=== PATIENT | female | born 1945 | race Caucasian/White ===

== ENCOUNTER 2018-10-23 19:31 | Inpatient (IN) | payer BC, MEDICAID ==
[2018-10-23 21:41] LABS: ADD MAN DIFF? NO
[2018-10-23 21:47] LABS: HEMATOCRIT 33.1 % (37.0-47.0); HEMOGLOBIN 10.2 g/dl (12.0-16.0); MEAN CORPUSCULAR HEMOGLOBIN 28.4 pg (29.0-33.0); MEAN CORPUSCULAR HGB CONC 30.8 g/dl (32.0-37.0); MEAN CORPUSCULAR VOLUME 92.2 fl (82.0-101.0); PLATELET COUNT 304 10^3/UL (140-415); RED BLOOD COUNT 3.59 10^6/ul (4.20-5.40); RED CELL DISTRIBUTION WIDTH 18.4 % (11.5-14.5)
[2018-10-23 21:47] LABS: WHITE BLOOD COUNT 6.2 10^3/ul (4.8-10.8)
[2018-10-23 21:48] LABS: BASOPHILS % 0.5 % (0.0-2.0); EOSINOPHILS # 0.1 10^3/ul (0.0-0.5); EOSINOPHILS % 1.3 % (0.0-7.0); LYMPHOCYTES # 1.4 10^3/ul (0.8-2.9); LYMPHOCYTES % 21.8 % (15.0-51.0); MEAN PLATELET VOLUME 10.3 fl (7.4-10.4); MONOCYTE # 0.5 10^3/ul (0.3-0.9); MONOCYTES % 8.1 % (0.0-11.0); NEUTROPHIL # 4.1 10^3/ul (1.6-7.5); NEUTROPHILS % 66.8 % (39.0-77.0)
[2018-10-23 22:05] LABS: ALANINE AMINOTRANSFERASE 40 IU/L (13-69); ALBUMIN 3.9 g/dl (3.3-4.9); ALBUMIN/GLOBULIN RATIO 1.21; ALKALINE PHOSPHATASE 44 IU/L (42-121); ANION GAP 13 (5-13); ASPARTATE AMINO TRANSFERASE 32 IU/L (15-46); BILIRUBIN,INDIRECT 0.2 mg/dl (0-1.1); BILIRUBIN,TOTAL 0.2 mg/dl (0.2-1.3); BLOOD UREA NITROGEN 14 mg/dl (7-20); CALCIUM 9.3 mg/dl (8.4-10.2); CARBON DIOXIDE 24 mmol/L (21-31); CHLORIDE 107 mmol/L (97-110); CREATININE 0.77 mg/dl (0.44-1.00); GLUCOSE 183 mg/dl (70-220); POTASSIUM 4.8 mmol/L (3.5-5.1); SODIUM 144 mmol/L (135-144); TOTAL PROTEIN 7.1 g/dl (6.1-8.1)
[2018-10-23 22:07] LABS: INR 1.08; PROTIME 14.1 Sec (11.9-14.9); PT RATIO 1.1
[2018-10-23 22:16] LABS: B-TYPE NATRIURETIC PEPTIDE 7300 PG/ML (0-125)
[2018-10-23 22:37] LABS: TROPONIN-I 0.138 ng/ml (0.000-0.120)
[2018-10-23] MEDS: FUROSEMIDE 40 MG INJ IV (22:46)
[2018-10-23] MEDS: NITROGLYCERIN 2% 1 GM OINT PKT TD (22:46)
[2018-10-24] MEDS ORDERED: ACETAMINOPHEN 325 MG TAB PO
[2018-10-24] MEDS ORDERED: IBUPROFEN 200 MG TAB (01:03)
[2018-10-24] MEDS: ASPIRIN 81 MG TAB PO (01:17)
[2018-10-24] MEDS ORDERED: ONDANSETRON 4 MG INJ IV ×2 (04:00)
[2018-10-24] MEDS ORDERED: NITROGLYCERIN (SL) 0.4 MG TAB SL (04:00)
[2018-10-24] MEDS ORDERED: NACL 0.9% 3 ML SYG IV (04:00)
[2018-10-24 04:07] LABS: CREATINE KINASE 40 IU/L (23-200)
[2018-10-24 04:20] LABS: CK INDEX 4.3; CK-MB 1.72 ng/ml (0.0-2.4)
[2018-10-24 04:29] LABS: TROPONIN-I 0.161 ng/ml (0.000-0.120)
[2018-10-24 08:00] LABS: ADD MAN DIFF? NO
[2018-10-24 08:05] LABS: WHITE BLOOD COUNT 6.3 10^3/ul (4.8-10.8)
[2018-10-24 08:05] LABS: BASOPHILS % 0.3 % (0.0-2.0); EOSINOPHILS # 0.1 10^3/ul (0.0-0.5); EOSINOPHILS % 1.7 % (0.0-7.0); HEMATOCRIT 33.9 % (37.0-47.0); HEMOGLOBIN 10.5 g/dl (12.0-16.0); LYMPHOCYTES # 1.2 10^3/ul (0.8-2.9); LYMPHOCYTES % 18.5 % (15.0-51.0); MEAN CORPUSCULAR HEMOGLOBIN 28.3 pg (29.0-33.0); MEAN CORPUSCULAR VOLUME 91.4 fl (82.0-101.0); MONOCYTE # 0.5 10^3/ul (0.3-0.9); MONOCYTES % 7.6 % (0.0-11.0); NEUTROPHIL # 4.5 10^3/ul (1.6-7.5); NEUTROPHILS % 70.6 % (39.0-77.0); NUCLEATED RED BLOOD CELLS% 0.3 /100WBC (0.0-0.0); PLATELET COUNT 298 10^3/UL (140-415); RED BLOOD COUNT 3.71 10^6/ul (4.20-5.40); RED CELL DISTRIBUTION WIDTH 18.4 % (11.5-14.5)
[2018-10-24 08:28] LABS: ALANINE AMINOTRANSFERASE 31 IU/L (13-69); ALBUMIN/GLOBULIN RATIO 1.25; ALKALINE PHOSPHATASE 43 IU/L (42-121); ANION GAP 12 (5-13); ASPARTATE AMINO TRANSFERASE 30 IU/L (15-46); BILIRUBIN,INDIRECT 0.3 mg/dl (0-1.1); BILIRUBIN,TOTAL 0.3 mg/dl (0.2-1.3); BLOOD UREA NITROGEN 14 mg/dl (7-20); CALCIUM 9.5 mg/dl (8.4-10.2); CARBON DIOXIDE 27 mmol/L (21-31); CHLORIDE 106 mmol/L (97-110); CHOLESTEROL 118 mg/dl (100-200); CREATININE 0.84 mg/dl (0.44-1.00); GLUCOSE 133 mg/dl (70-220); HDL CHOLESTEROL 29 mg/dl (33-92); LDL CHOLESTEROL,CALCULATED 50 mg/dl; MAGNESIUM 1.9 mg/dl (1.7-2.5); POTASSIUM 4.8 mmol/L (3.5-5.1); SODIUM 145 mmol/L (135-144); TOTAL PROTEIN 7.2 g/dl (6.1-8.1); TRIGLYCERIDES 193 mg/dl (0-149)
[2018-10-24] MEDS ORDERED: NON-FORMULARY/PATIENT OWN MED (Fenofibrate, Micronized (Fenofibrate) 134 MG) PO (09:00)
[2018-10-24] MEDS ORDERED: HEPARIN 5,000 UNIT/1 ML VIAL SC (09:00)
[2018-10-24] MEDS ORDERED: AMITRIPTYLINE 50 MG TAB PO (09:00)
[2018-10-24 10:08] LABS: CREATINE KINASE 39 IU/L (23-200)
[2018-10-24 10:21] LABS: CK INDEX 3.9; CK-MB 1.53 ng/ml (0.0-2.4)
[2018-10-24 10:41] LABS: TROPONIN-I 0.121 ng/ml (0.000-0.120)
[2018-10-24] MEDS: FUROSEMIDE 20 MG INJ IV (11:18)
[2018-10-24] MEDS: ENOXAPARIN 80 MG/0.8 ML SYG SC (11:18)
[2018-10-24] MEDS: ASPIRIN (EC) 81 MG TAB PO (11:26)
[2018-10-24] MEDS: FENOFIBRATE 145 MG TAB PO (11:27)
[2018-10-24] MEDS: METOPROLOL (XL) 25 MG TAB PO (11:27)
[2018-10-24] MEDS: ENALAPRIL 5 MG TAB PO (11:28)
[2018-10-24] MEDS: CALCIUM CARBONATE 1.25 GM TAB PO (11:28)
[2018-10-24] MEDS ORDERED: GLUCOSE GEL 15 GRAM TUBE PO ×2 (15:00)
[2018-10-24] MEDS ORDERED: GLUCAGON 1 MG INJ IM (15:00)
[2018-10-24] MEDS ORDERED: DEXTROSE 50% 50 ML SYRINGE IV ×2 (15:00)
[2018-10-24] MEDS ORDERED: GLUCOSE GEL 15 GRAM TUBE BUCCAL (15:00)
[2018-10-24] MEDS: SOD CHLORIDE 0.9% 500 ML IV (15:26)
[2018-10-24] MEDS: ACETAMINOPHEN 325 MG TAB PO (15:33)
[2018-10-24 15:43] LABS: D-DIMER 829.88 ng/ml (<460)
[2018-10-24] MEDS: GABAPENTIN 300 MG CAP PO ×2 (17:09→21:00)
[2018-10-24] MEDS: CEFEPIME 1GM/50 ML (PMX) 50 ML IVPB (17:09)
[2018-10-24] MEDS: SOD CHLORIDE 0.9% 100 ML (20:00)
[2018-10-24] MEDS: IOHEXOL 100 ML (20:00)
[2018-10-24] MEDS: ATORVASTATIN 20 MG TAB PO (21:00)
[2018-10-24] MEDS ORDERED: PHENYLephrine 20MG IN 250 ML 250 ML IV (21:30)
[2018-10-24] MEDS: SOD CHLORIDE 0.9% 250 ML IV (21:59)
[2018-10-24] MEDS: INSULIN ASPART [NOVOLOG] 3 ML PEN SC ×2 (22:06→22:27)
[2018-10-24] MEDS: PHENYLephrine 20MG IN 250 ML 250 ML IV (22:23)
[2018-10-25] MEDS: PHENYLephrine 20MG IN 250 ML 250 ML IV ×2 (02:59→10:14)
[2018-10-25 05:24] LABS: ADD MAN DIFF? NO
[2018-10-25 05:34] LABS: BASOPHILS % 0.4 % (0.0-2.0); EOSINOPHILS # 0.1 10^3/ul (0.0-0.5); EOSINOPHILS % 1.6 % (0.0-7.0); HEMATOCRIT 34.1 % (37.0-47.0); HEMOGLOBIN 10.6 g/dl (12.0-16.0); LYMPHOCYTES # 1.8 10^3/ul (0.8-2.9); LYMPHOCYTES % 20.2 % (15.0-51.0); MEAN CORPUSCULAR HEMOGLOBIN 28.7 pg (29.0-33.0); MEAN CORPUSCULAR HGB CONC 31.1 g/dl (32.0-37.0); MEAN CORPUSCULAR VOLUME 92.4 fl (82.0-101.0); MEAN PLATELET VOLUME 10.8 fl (7.4-10.4); MONOCYTE # 0.9 10^3/ul (0.3-0.9); MONOCYTES % 9.5 % (0.0-11.0); NEUTROPHILS % 66.6 % (39.0-77.0); NUCLEATED RED BLOOD CELLS # 0.1 10^3/ul (0.0-0.0); NUCLEATED RED BLOOD CELLS% 0.6 /100WBC (0.0-0.0); PLATELET COUNT 364 10^3/UL (140-415); RED BLOOD COUNT 3.69 10^6/ul (4.20-5.40); RED CELL DISTRIBUTION WIDTH 18.9 % (11.5-14.5)
[2018-10-25 05:51] LABS: ANION GAP 13 (5-13); BLOOD UREA NITROGEN 15 mg/dl (7-20); CALCIUM 9.1 mg/dl (8.4-10.2); CARBON DIOXIDE 27 mmol/L (21-31); CHLORIDE 104 mmol/L (97-110); CREATININE 0.95 mg/dl (0.44-1.00); GLUCOSE 134 mg/dl (70-220); MAGNESIUM 2.1 mg/dl (1.7-2.5); PHOSPHORUS 5.7 mg/dl (2.5-4.9); POTASSIUM 4.5 mmol/L (3.5-5.1); SODIUM 144 mmol/L (135-144)
[2018-10-25 06:03] LABS: IRON 49 ug/dl (35-150)
[2018-10-25 06:12] LABS: % IRON SATURATION 13 % SAT (22-52); TOTAL IRON BINDING CAPACITY 385 ug/dl (241-421)
[2018-10-25] MEDS: ASPIRIN (EC) 81 MG TAB PO (08:12)
[2018-10-25] MEDS: GABAPENTIN 300 MG CAP PO ×3 (08:12→20:39)
[2018-10-25] MEDS: FUROSEMIDE 20 MG INJ IV (08:12)
[2018-10-25] MEDS: INSULIN ASPART [NOVOLOG] 3 ML PEN SC ×4 (08:17→20:39)
[2018-10-25] MEDS: CALCIUM CARBONATE 1.25 GM TAB PO (09:00)
[2018-10-25] MEDS: FENOFIBRATE 145 MG TAB PO (09:00)
[2018-10-25] MEDS: SOD FERRIC GLUC COMPLX 125 MG in SOD CHLORIDE 0.9% 100 ML IVPB (14:48)
[2018-10-25] MEDS: CEFEPIME 1GM/50 ML (PMX) 50 ML IVPB (14:48)
[2018-10-25] MEDS: ATORVASTATIN 20 MG TAB PO (20:39)
[2018-10-26 05:24] LABS: ADD MAN DIFF? NO
[2018-10-26 05:26] LABS: BASOPHILS % 0.3 % (0.0-2.0); EOSINOPHILS # 0.1 10^3/ul (0.0-0.5); EOSINOPHILS % 1.9 % (0.0-7.0); HEMOGLOBIN 9.9 g/dl (12.0-16.0); LYMPHOCYTES # 1.3 10^3/ul (0.8-2.9); LYMPHOCYTES % 21.9 % (15.0-51.0); MEAN CORPUSCULAR HEMOGLOBIN 28.9 pg (29.0-33.0); MEAN CORPUSCULAR HGB CONC 31.9 g/dl (32.0-37.0); MEAN CORPUSCULAR VOLUME 90.4 fl (82.0-101.0); MEAN PLATELET VOLUME 11.1 fl (7.4-10.4); MONOCYTE # 0.7 10^3/ul (0.3-0.9); MONOCYTES % 11.4 % (0.0-11.0); NEUTROPHIL # 3.7 10^3/ul (1.6-7.5); NEUTROPHILS % 63.3 % (39.0-77.0); NUCLEATED RED BLOOD CELLS% 0.7 /100WBC (0.0-0.0); PLATELET COUNT 228 10^3/UL (140-415); RED BLOOD COUNT 3.43 10^6/ul (4.20-5.40); RED CELL DISTRIBUTION WIDTH 18.8 % (11.5-14.5)
[2018-10-26 05:26] LABS: WHITE BLOOD COUNT 5.9 10^3/ul (4.8-10.8)
[2018-10-26 05:53] LABS: ANION GAP 10 (5-13); BLOOD UREA NITROGEN 15 mg/dl (7-20); CALCIUM 8.6 mg/dl (8.4-10.2); CARBON DIOXIDE 27 mmol/L (21-31); CHLORIDE 104 mmol/L (97-110); CREATININE 0.85 mg/dl (0.44-1.00); GLUCOSE 154 mg/dl (70-220); MAGNESIUM 2.2 mg/dl (1.7-2.5); SODIUM 141 mmol/L (135-144)
[2018-10-26] MEDS: INSULIN ASPART [NOVOLOG] 3 ML PEN SC ×7 (07:42→20:47)
[2018-10-26] MEDS: CALCIUM CARBONATE 1.25 GM TAB PO (08:17)
[2018-10-26] MEDS: FENOFIBRATE 145 MG TAB PO (08:18)
[2018-10-26] MEDS: FUROSEMIDE 20 MG INJ IV (08:18)
[2018-10-26] MEDS: ASPIRIN (EC) 81 MG TAB PO (08:18)
[2018-10-26] MEDS: GABAPENTIN 300 MG CAP PO ×3 (08:21→20:13)
[2018-10-26] MEDS: POLYSACCHARIDE IRON COMPLEX CAP PO ×2 (08:21→20:13)
[2018-10-26] MEDS: ENOXAPARIN 40 MG/0.4 ML SYG SC (08:28)
[2018-10-26] MEDS: FUROSEMIDE 40 MG INJ IV ×2 (09:50→17:23)
[2018-10-26] MEDS: CEFEPIME 1GM/50 ML (PMX) 50 ML IVPB (14:31)
[2018-10-26] MEDS: ATORVASTATIN 20 MG TAB PO (20:13)
[2018-10-26] MEDS: INSULIN GLARGINE [LANTus] (100 UNITS/ML) SYG SC (21:46)
[2018-10-27 06:20] LABS: ADD MAN DIFF? NO
[2018-10-27 06:25] LABS: WHITE BLOOD COUNT 6.7 10^3/ul (4.8-10.8)
[2018-10-27 06:25] LABS: BASOPHILS % 0.3 % (0.0-2.0); EOSINOPHILS # 0.1 10^3/ul (0.0-0.5); EOSINOPHILS % 1.1 % (0.0-7.0); HEMATOCRIT 33.2 % (37.0-47.0); HEMOGLOBIN 10.7 g/dl (12.0-16.0); LYMPHOCYTES # 1.2 10^3/ul (0.8-2.9); LYMPHOCYTES % 17.4 % (15.0-51.0); MEAN CORPUSCULAR HEMOGLOBIN 29.2 pg (29.0-33.0); MEAN CORPUSCULAR HGB CONC 32.2 g/dl (32.0-37.0); MEAN CORPUSCULAR VOLUME 90.7 fl (82.0-101.0); MEAN PLATELET VOLUME 10.4 fl (7.4-10.4); MONOCYTE # 0.8 10^3/ul (0.3-0.9); MONOCYTES % 11.4 % (0.0-11.0); NEUTROPHIL # 4.6 10^3/ul (1.6-7.5); NEUTROPHILS % 68.9 % (39.0-77.0); NUCLEATED RED BLOOD CELLS% 0.3 /100WBC (0.0-0.0); PLATELET COUNT 284 10^3/UL (140-415); RED BLOOD COUNT 3.66 10^6/ul (4.20-5.40); RED CELL DISTRIBUTION WIDTH 18.7 % (11.5-14.5)
[2018-10-27] MEDS: FUROSEMIDE 40 MG INJ IV ×2 (06:31→17:23)
[2018-10-27 07:07] LABS: ANION GAP 6 (5-13); BLOOD UREA NITROGEN 14 mg/dl (7-20); CALCIUM 8.5 mg/dl (8.4-10.2); CARBON DIOXIDE 29 mmol/L (21-31); CHLORIDE 108 mmol/L (97-110); CREATININE 0.76 mg/dl (0.44-1.00); GLUCOSE 187 mg/dl (70-220); POTASSIUM 4.1 mmol/L (3.5-5.1); SODIUM 143 mmol/L (135-144)
[2018-10-27] MEDS ORDERED: INSULIN GLARGINE [LANTus] (100 UNITS/ML) SYG SC (08:00)
[2018-10-27] MEDS: GABAPENTIN 300 MG CAP PO ×3 (09:36→20:43)
[2018-10-27] MEDS: CALCIUM CARBONATE 1.25 GM TAB PO (09:36)
[2018-10-27] MEDS: FENOFIBRATE 145 MG TAB PO (09:36)
[2018-10-27] MEDS: ASPIRIN (EC) 81 MG TAB PO (09:36)
[2018-10-27] MEDS: ENOXAPARIN 40 MG/0.4 ML SYG SC (09:38)
[2018-10-27] MEDS: INSULIN ASPART [NOVOLOG] 3 ML PEN SC ×7 (09:40→20:53)
[2018-10-27] MEDS: POLYSACCHARIDE IRON COMPLEX CAP PO ×2 (10:56→20:43)
[2018-10-27] MEDS: LINAGLIPTIN 5 MG TABLET PO (12:15)
[2018-10-27] MEDS: CEFEPIME 1GM/50 ML (PMX) 50 ML IVPB (14:37)
[2018-10-27] MEDS: DIGOXIN 0.125 MG TAB PO (16:34)
[2018-10-27] MEDS: ACCU-CHEK XX ×2 (17:26→21:03)
[2018-10-27] MEDS: LOSARTAN 25 MG TAB PO (20:43)
[2018-10-27] MEDS: ATORVASTATIN 20 MG TAB PO (20:44)
[2018-10-27] MEDS: INSULIN GLARGINE [LANTus] (100 UNITS/ML) SYG SC (20:55)
[2018-10-28] MEDS: FUROSEMIDE 40 MG INJ IV (05:28)
[2018-10-28 06:21] LABS: ADD MAN DIFF? NO
[2018-10-28 06:31] LABS: BASOPHILS % 0.2 % (0.0-2.0); EOSINOPHILS # 0.1 10^3/ul (0.0-0.5); EOSINOPHILS % 1.6 % (0.0-7.0); LYMPHOCYTES # 1.3 10^3/ul (0.8-2.9); LYMPHOCYTES % 20.9 % (15.0-51.0); MEAN CORPUSCULAR HEMOGLOBIN 28.4 pg (29.0-33.0); MEAN CORPUSCULAR HGB CONC 30.6 g/dl (32.0-37.0); MEAN CORPUSCULAR VOLUME 92.8 fl (82.0-101.0); MEAN PLATELET VOLUME 10.3 fl (7.4-10.4); MONOCYTE # 0.8 10^3/ul (0.3-0.9); MONOCYTES % 12.1 % (0.0-11.0); NEUTROPHILS % 63.6 % (39.0-77.0); NUCLEATED RED BLOOD CELLS% 0.3 /100WBC (0.0-0.0); PLATELET COUNT 297 10^3/UL (140-415); RED BLOOD COUNT 3.88 10^6/ul (4.20-5.40); RED CELL DISTRIBUTION WIDTH 18.9 % (11.5-14.5)
[2018-10-28 06:31] LABS: WHITE BLOOD COUNT 6.2 10^3/ul (4.8-10.8)
[2018-10-28 06:54] LABS: MAGNESIUM 2.5 mg/dl (1.7-2.5)
[2018-10-28 07:01] LABS: ANION GAP 10 (5-13); BLOOD UREA NITROGEN 20 mg/dl (7-20); CALCIUM 8.9 mg/dl (8.4-10.2); CARBON DIOXIDE 30 mmol/L (21-31); CHLORIDE 103 mmol/L (97-110); CREATININE 0.88 mg/dl (0.44-1.00); GLUCOSE 197 mg/dl (70-220); POTASSIUM 4.2 mmol/L (3.5-5.1); SODIUM 143 mmol/L (135-144)
[2018-10-28 07:03] LABS: B-TYPE NATRIURETIC PEPTIDE 5950 PG/ML (0-125)
[2018-10-28] MEDS: ACCU-CHEK XX ×4 (07:51→21:15)
[2018-10-28] MEDS: INSULIN ASPART [NOVOLOG] 3 ML PEN SC ×8 (07:56→21:00)
[2018-10-28] MEDS: POLYSACCHARIDE IRON COMPLEX CAP PO ×2 (08:37→20:41)
[2018-10-28] MEDS: FENOFIBRATE 145 MG TAB PO (08:37)
[2018-10-28] MEDS: GABAPENTIN 300 MG CAP PO ×3 (08:38→20:41)
[2018-10-28] MEDS: CALCIUM CARBONATE 1.25 GM TAB PO (08:38)
[2018-10-28] MEDS: ASPIRIN (EC) 81 MG TAB PO (08:38)
[2018-10-28] MEDS: ENOXAPARIN 40 MG/0.4 ML SYG SC (08:39)
[2018-10-28] MEDS: LINAGLIPTIN 5 MG TABLET PO (08:57)
[2018-10-28] MEDS: DIGOXIN 0.125 MG TAB PO (12:15)
[2018-10-28] MEDS: FUROSEMIDE 40 MG TAB PO (12:15)
[2018-10-28] MEDS: LOSARTAN 25 MG TAB PO (20:41)
[2018-10-28] MEDS: ATORVASTATIN 20 MG TAB PO (20:41)
[2018-10-28] MEDS: INSULIN GLARGINE [LANTus] (100 UNITS/ML) SYG SC (20:49)
[2018-10-28] MEDS: ALBUTEROL/IPRATROPIUM (NEB) 3 ML AMP HHN (23:46)
[2018-10-29] MEDS: ACCU-CHEK XX ×4 (07:25→21:07)
[2018-10-29] MEDS: INSULIN ASPART [NOVOLOG] 3 ML PEN SC ×7 (08:22→20:57)
[2018-10-29] MEDS: GABAPENTIN 300 MG CAP PO ×3 (08:57→20:52)
[2018-10-29] MEDS: POLYSACCHARIDE IRON COMPLEX CAP PO ×2 (08:57→20:52)
[2018-10-29] MEDS: ASPIRIN (EC) 81 MG TAB PO (08:58)
[2018-10-29] MEDS: CALCIUM CARBONATE 1.25 GM TAB PO (08:58)
[2018-10-29] MEDS: FENOFIBRATE 145 MG TAB PO (08:58)
[2018-10-29] MEDS: FUROSEMIDE 40 MG TAB PO (08:58)
[2018-10-29] MEDS: LINAGLIPTIN 5 MG TABLET PO (08:58)
[2018-10-29] MEDS: ENOXAPARIN 40 MG/0.4 ML SYG SC (09:03)
[2018-10-29] MEDS: DIGOXIN 0.125 MG TAB PO (13:19)
[2018-10-29] MEDS: INSULIN GLARGINE [LANTus] (100 UNITS/ML) SYG SC ×2 (18:30→20:58)
[2018-10-29 18:38] LABS: GLUCOSE 406 mg/dl (70-220)
[2018-10-29] MEDS: LOSARTAN 25 MG TAB PO (20:52)
[2018-10-29] MEDS: ATORVASTATIN 20 MG TAB PO (20:52)
[2018-10-30 07:11] LABS: ADD MAN DIFF? NO
[2018-10-30 07:18] LABS: WHITE BLOOD COUNT 6.5 10^3/ul (4.8-10.8)
[2018-10-30 07:18] LABS: BASOPHILS % 0.5 % (0.0-2.0); EOSINOPHILS # 0.2 10^3/ul (0.0-0.5); EOSINOPHILS % 3.3 % (0.0-7.0); HEMATOCRIT 35.3 % (37.0-47.0); HEMOGLOBIN 10.8 g/dl (12.0-16.0); LYMPHOCYTES # 1.3 10^3/ul (0.8-2.9); LYMPHOCYTES % 19.4 % (15.0-51.0); MEAN CORPUSCULAR HEMOGLOBIN 28.8 pg (29.0-33.0); MEAN CORPUSCULAR HGB CONC 30.6 g/dl (32.0-37.0); MEAN CORPUSCULAR VOLUME 94.1 fl (82.0-101.0); MEAN PLATELET VOLUME 10.1 fl (7.4-10.4); MONOCYTE # 0.7 10^3/ul (0.3-0.9); NEUTROPHIL # 4.2 10^3/ul (1.6-7.5); NEUTROPHILS % 64.6 % (39.0-77.0); PLATELET COUNT 260 10^3/UL (140-415); RED BLOOD COUNT 3.75 10^6/ul (4.20-5.40); RED CELL DISTRIBUTION WIDTH 18.5 % (11.5-14.5)
[2018-10-30 07:57] LABS: ANION GAP 8 (5-13); BLOOD UREA NITROGEN 25 mg/dl (7-20); CALCIUM 9.3 mg/dl (8.4-10.2); CARBON DIOXIDE 28 mmol/L (21-31); CHLORIDE 106 mmol/L (97-110); CREATININE 0.74 mg/dl (0.44-1.00); GLUCOSE 208 mg/dl (70-220); POTASSIUM 5.2 mmol/L (3.5-5.1); SODIUM 142 mmol/L (135-144)
[2018-10-30] MEDS: ACCU-CHEK XX ×4 (07:58→21:16)
[2018-10-30] MEDS: FENOFIBRATE 145 MG TAB PO (08:07)
[2018-10-30] MEDS: CALCIUM CARBONATE 1.25 GM TAB PO (08:07)
[2018-10-30] MEDS: FUROSEMIDE 40 MG TAB PO (08:08)
[2018-10-30] MEDS: ASPIRIN (EC) 81 MG TAB PO (08:08)
[2018-10-30] MEDS: GABAPENTIN 300 MG CAP PO ×3 (08:08→21:13)
[2018-10-30] MEDS: INSULIN ASPART [NOVOLOG] 3 ML PEN SC ×7 (08:15→21:25)
[2018-10-30] MEDS: ENOXAPARIN 40 MG/0.4 ML SYG SC (08:19)
[2018-10-30] MEDS: LINAGLIPTIN 5 MG TABLET PO (08:25)
[2018-10-30] MEDS: POLYSACCHARIDE IRON COMPLEX CAP PO ×2 (08:25→21:14)
[2018-10-30] MEDS: DIGOXIN 0.125 MG TAB PO (12:49)
[2018-10-30] MEDS: ATORVASTATIN 20 MG TAB PO (21:13)
[2018-10-30] MEDS: INSULIN GLARGINE [LANTus] (100 UNITS/ML) SYG SC (21:25)
[2018-10-30] MEDS: ALBUTEROL/IPRATROPIUM (NEB) 3 ML AMP HHN (22:13)
[2018-10-31] MEDS: ACCU-CHEK XX ×4 (08:07→21:01)
[2018-10-31] MEDS: FUROSEMIDE 40 MG TAB PO (08:26)
[2018-10-31] MEDS: POLYSACCHARIDE IRON COMPLEX CAP PO ×2 (08:26→20:41)
[2018-10-31] MEDS: FENOFIBRATE 145 MG TAB PO (08:26)
[2018-10-31] MEDS: CALCIUM CARBONATE 1.25 GM TAB PO (08:26)
[2018-10-31] MEDS: GABAPENTIN 300 MG CAP PO ×3 (08:27→20:42)
[2018-10-31] MEDS: LINAGLIPTIN 5 MG TABLET PO (08:27)
[2018-10-31] MEDS: ASPIRIN (EC) 81 MG TAB PO (08:27)
[2018-10-31 08:44] LABS: ADD MAN DIFF? NO
[2018-10-31 08:48] LABS: WHITE BLOOD COUNT 7.3 10^3/ul (4.8-10.8)
[2018-10-31 08:48] LABS: BASOPHILS % 0.3 % (0.0-2.0); EOSINOPHILS # 0.2 10^3/ul (0.0-0.5); EOSINOPHILS % 2.2 % (0.0-7.0); HEMATOCRIT 34.7 % (37.0-47.0); HEMOGLOBIN 10.8 g/dl (12.0-16.0); LYMPHOCYTES # 1.4 10^3/ul (0.8-2.9); LYMPHOCYTES % 18.6 % (15.0-51.0); MEAN CORPUSCULAR HEMOGLOBIN 28.7 pg (29.0-33.0); MEAN CORPUSCULAR HGB CONC 31.1 g/dl (32.0-37.0); MEAN CORPUSCULAR VOLUME 92.3 fl (82.0-101.0); MEAN PLATELET VOLUME 10.8 fl (7.4-10.4); MONOCYTE # 0.7 10^3/ul (0.3-0.9); MONOCYTES % 9.2 % (0.0-11.0); NEUTROPHILS % 68.9 % (39.0-77.0); PLATELET COUNT 197 10^3/UL (140-415); RED BLOOD COUNT 3.76 10^6/ul (4.20-5.40); RED CELL DISTRIBUTION WIDTH 18.4 % (11.5-14.5)
[2018-10-31] MEDS: ENOXAPARIN 40 MG/0.4 ML SYG SC (08:52)
[2018-10-31] MEDS: INSULIN ASPART [NOVOLOG] 3 ML PEN SC ×7 (08:52→21:00)
[2018-10-31 09:15] LABS: ANION GAP 7 (5-13); BLOOD UREA NITROGEN 30 mg/dl (7-20); CALCIUM 9.3 mg/dl (8.4-10.2); CARBON DIOXIDE 27 mmol/L (21-31); CHLORIDE 104 mmol/L (97-110); CREATININE 0.82 mg/dl (0.44-1.00); GLUCOSE 201 mg/dl (70-220); POTASSIUM 5.2 mmol/L (3.5-5.1); SODIUM 138 mmol/L (135-144)
[2018-10-31] MEDS: DIGOXIN 0.125 MG TAB PO (13:08)
[2018-10-31] MEDS: ATORVASTATIN 20 MG TAB PO (20:44)
[2018-10-31] MEDS: INSULIN GLARGINE [LANTus] (100 UNITS/ML) SYG SC (21:00)
[2018-11-01 05:50] LABS: ANION GAP 9 (5-13); BLOOD UREA NITROGEN 31 mg/dl (7-20); CARBON DIOXIDE 28 mmol/L (21-31); CHLORIDE 102 mmol/L (97-110); CREATININE 0.84 mg/dl (0.44-1.00); GLUCOSE 187 mg/dl (70-220); POTASSIUM 4.7 mmol/L (3.5-5.1); SODIUM 139 mmol/L (135-144)
[2018-11-01] MEDS: ACCU-CHEK XX ×2 (08:30→13:00)
[2018-11-01] MEDS: LINAGLIPTIN 5 MG TABLET PO (08:32)
[2018-11-01] MEDS: CALCIUM CARBONATE 1.25 GM TAB PO (08:32)
[2018-11-01] MEDS: FUROSEMIDE 40 MG TAB PO (08:32)
[2018-11-01] MEDS: FENOFIBRATE 145 MG TAB PO (08:32)
[2018-11-01] MEDS: GABAPENTIN 300 MG CAP PO ×2 (08:32→12:57)
[2018-11-01] MEDS: ASPIRIN (EC) 81 MG TAB PO (08:32)
[2018-11-01] MEDS: INSULIN ASPART [NOVOLOG] 3 ML PEN SC ×4 (08:34→13:00)
[2018-11-01] MEDS: ENOXAPARIN 40 MG/0.4 ML SYG SC (08:36)
[2018-11-01] MEDS: POLYSACCHARIDE IRON COMPLEX CAP PO ×2 (09:00→11:38)
[2018-11-01] MEDS: DIGOXIN 0.125 MG TAB PO (12:57)
[2018-11-01] MEDS: HEPARIN (100 UNITS/ML) 5 ML SYG CATHETER (15:36)
[2018-11-01] MEDS ORDERED: INSULIN GLARGINE [LANTus] (100 UNITS/ML) SYG SC (21:00)
[2018-11-02] MEDS ORDERED: ACCU-CHEK XX (01:00)
== END 2018-11-01 16:20 | disposition home or self-care (01) | DRG 280 ==
LOC: TEL 10-26 22:30 → E/R 19:31 → MS1 10-31 21:57 → ICU 23:52
PROC: 5A09357 Assistance with Respiratory Ventilation, Less than 24 Consecutive Hours, Continuous Positive Airway Pressure (ICD-10-PCS; principal; 2018-10-23)
DX: I11.0 Hypertensive heart disease with heart failure (principal); I21.4 Non-ST elevation (NSTEMI) myocardial infarction; J96.00 Acute respiratory failure, unspecified whether with hypoxia or hypercapnia; J21.9 Acute bronchiolitis, unspecified; I50.23 Acute on chronic systolic (congestive) heart failure; I95.9 Hypotension, unspecified; E87.5 Hyperkalemia; E11.42 Type 2 diabetes mellitus with diabetic polyneuropathy; I42.7 Cardiomyopathy due to drug and external agent; C50.911 Malignant neoplasm of unspecified site of right female breast; D63.0 Anemia in neoplastic disease; D63.8 Anemia in other chronic diseases classified elsewhere; E78.5 Hyperlipidemia, unspecified; R91.1 Solitary pulmonary nodule; M81.0 Age-related osteoporosis without current pathological fracture; T45.1X5A Adverse effect of antineoplastic and immunosuppressive drugs, initial encounter; E66.9 Obesity, unspecified; Z68.32 Body mass index [BMI] 32.0-32.9, adult; Y92.019 Unspecified place in single-family (private) house as the place of occurrence of the external cause; Z79.4 Long term (current) use of insulin; Z79.82 Long term (current) use of aspirin
CPT/HCPCS: 36415; 71045; 71275; 80048; 80053; 80061; 82550; 82553; 82947; 82962; 83036; 83540; 83735; 83880; 84100; 84443; 84484; 85025; 85378; 85610; 85730; 87040-91; 87081; 93005; 93306; 93970; 94640; 94660; 94664; 96374; 99291-25

== ENCOUNTER 2019-01-10 21:10 | Inpatient (IN) | payer BC ==
[2019-01-10 21:43] LABS: ADD MAN DIFF? NO
[2019-01-10] MEDS: NITROGLYCERIN (SL) 0.4 MG TAB SL (21:43)
[2019-01-10] MEDS: ASPIRIN 81 MG TAB PO (21:43)
[2019-01-10] MEDS: NITROGLYCERIN 2% 1 GM OINT PKT TD (21:43)
[2019-01-10 21:46] LABS: WHITE BLOOD COUNT 9.6 10^3/ul (4.8-10.8)
[2019-01-10 21:46] LABS: BASOPHILS % 0.2 % (0.0-2.0); EOSINOPHILS # 0.3 10^3/ul (0.0-0.5); EOSINOPHILS % 2.7 % (0.0-7.0); HEMATOCRIT 38.2 % (37.0-47.0); HEMOGLOBIN 12.3 g/dl (12.0-16.0); LYMPHOCYTES # 2.5 10^3/ul (0.8-2.9); LYMPHOCYTES % 26.5 % (15.0-51.0); MEAN CORPUSCULAR HEMOGLOBIN 28.1 pg (29.0-33.0); MEAN CORPUSCULAR HGB CONC 32.2 g/dl (32.0-37.0); MEAN CORPUSCULAR VOLUME 87.2 fl (82.0-101.0); MEAN PLATELET VOLUME 11.2 fl (7.4-10.4); MONOCYTE # 0.8 10^3/ul (0.3-0.9); MONOCYTES % 8.5 % (0.0-11.0); NEUTROPHIL # 5.9 10^3/ul (1.6-7.5); NEUTROPHILS % 61.8 % (39.0-77.0); PLATELET COUNT 212 10^3/UL (140-415); RED BLOOD COUNT 4.38 10^6/ul (4.20-5.40); RED CELL DISTRIBUTION WIDTH 13.7 % (11.5-14.5)
[2019-01-10 22:05] LABS: ANION GAP 11 (5-13); BLOOD UREA NITROGEN 22 mg/dl (7-20); CALCIUM 10.1 mg/dl (8.4-10.2); CARBON DIOXIDE 27 mmol/L (21-31); CHLORIDE 100 mmol/L (97-110); GLUCOSE 240 mg/dl (70-220); POTASSIUM 4.9 mmol/L (3.5-5.1); SODIUM 138 mmol/L (135-144)
[2019-01-10 22:16] LABS: TROPONIN-I 0.024 ng/ml (0.000-0.120)
[2019-01-10] MEDS ORDERED: morphine 2 MG INJ IV (23:00)
[2019-01-10] MEDS ORDERED: ACETAMINOPHEN 325 MG TAB PO ×2 (23:00)
[2019-01-10] MEDS ORDERED: ONDANSETRON 4 MG INJ IV ×2 (23:00)
[2019-01-10] MEDS: ENOXAPARIN 40 MG/0.4 ML SYG SC (23:00)
[2019-01-10] MEDS ORDERED: NACL 0.9% 3 ML SYG IV (23:00)
[2019-01-10] MEDS ORDERED: DOCUSATE SODIUM 100 MG CAP PO (23:00)
[2019-01-10] MEDS ORDERED: NITROGLYCERIN (SL) 0.4 MG TAB SL (23:00)
[2019-01-10] MEDS ORDERED: BISACODYL (EC) 5 MG TAB PO (23:00)
[2019-01-11] MEDS: ACCU-CHEK XX (02:39)
[2019-01-11 03:22] LABS: ADD MAN DIFF? NO
[2019-01-11 03:24] LABS: BASOPHILS % 0.2 % (0.0-2.0); EOSINOPHILS # 0.3 10^3/ul (0.0-0.5); EOSINOPHILS % 3.1 % (0.0-7.0); HEMATOCRIT 35.7 % (37.0-47.0); HEMOGLOBIN 11.6 g/dl (12.0-16.0); LYMPHOCYTES # 2.2 10^3/ul (0.8-2.9); LYMPHOCYTES % 25.6 % (15.0-51.0); MEAN CORPUSCULAR HEMOGLOBIN 28.3 pg (29.0-33.0); MEAN CORPUSCULAR HGB CONC 32.5 g/dl (32.0-37.0); MEAN CORPUSCULAR VOLUME 87.1 fl (82.0-101.0); MEAN PLATELET VOLUME 10.9 fl (7.4-10.4); MONOCYTE # 0.8 10^3/ul (0.3-0.9); MONOCYTES % 9.6 % (0.0-11.0); NEUTROPHIL # 5.2 10^3/ul (1.6-7.5); NEUTROPHILS % 60.9 % (39.0-77.0); PLATELET COUNT 152 10^3/UL (140-415); RED CELL DISTRIBUTION WIDTH 13.7 % (11.5-14.5)
[2019-01-11 03:24] LABS: WHITE BLOOD COUNT 8.6 10^3/ul (4.8-10.8)
[2019-01-11 03:33] LABS: HEMOGLOBIN A1C 9.5 % (0-5.9)
[2019-01-11 03:49] LABS: CREATINE KINASE 34 IU/L (23-200)
[2019-01-11 03:51] LABS: ALANINE AMINOTRANSFERASE 56 IU/L (13-69); ALBUMIN 3.6 g/dl (3.3-4.9); ALBUMIN/GLOBULIN RATIO 1.12; ALKALINE PHOSPHATASE 50 IU/L (42-121); ANION GAP 10 (5-13); ASPARTATE AMINO TRANSFERASE 44 IU/L (15-46); BILIRUBIN,INDIRECT 0.4 mg/dl (0-1.1); BILIRUBIN,TOTAL 0.4 mg/dl (0.2-1.3); BLOOD UREA NITROGEN 24 mg/dl (7-20); CALCIUM 9.4 mg/dl (8.4-10.2); CARBON DIOXIDE 25 mmol/L (21-31); CHLORIDE 103 mmol/L (97-110); CHOL/HDL RATIO 4.7 RATIO; CHOLESTEROL 115 mg/dl (100-200); CREATININE 0.92 mg/dl (0.44-1.00); GLUCOSE 249 mg/dl (70-220); HDL CHOLESTEROL 24 mg/dl (33-92); LDL CHOLESTEROL,CALCULATED 39 mg/dl; MAGNESIUM 1.8 mg/dl (1.7-2.5); POTASSIUM 4.5 mmol/L (3.5-5.1); SODIUM 138 mmol/L (135-144); TOTAL PROTEIN 6.8 g/dl (6.1-8.1); TRIGLYCERIDES 259 mg/dl (0-149)
[2019-01-11 04:00] LABS: CK INDEX 3.3; CK-MB 1.12 ng/ml (0.0-2.4); TROPONIN-I 0.016 ng/ml (0.000-0.120)
[2019-01-11] MEDS: IODIXANOL LOCM 100 ML BTL ×2 (05:34→06:03)
[2019-01-11] MEDS: SOD CHLORIDE 0.9% 100 ML ×2 (05:34→06:03)
[2019-01-11] MEDS: INSULIN ASPART [NOVOLOG] 3 ML PEN SC ×4 (08:00→22:07)
[2019-01-11 08:46] LABS: AADO2 Arterial 23.7 mmHg (7.0-24.0); Allen Test ACCEPTAB; Arterial Base Excess 1.6 mmol/L (-3.0-3); Arterial Blood Gas Oxygen Sat 96.8 mmHG (95.0-100.0); Arterial COHb 0.4 % (0.0-3.0); Arterial Fraction of Oxyhgb 96.3 % (93.0-99.0); Arterial HCO3 24.3 mmol/L (22.0-26.0); Arterial MetHb 0.1 % (0.0-1.5); Arterial pCO2 32.4 mmhg (35-45); MODE ROOM AIR; Site Left Radial
[2019-01-11] MEDS ORDERED: NON-FORMULARY/PATIENT OWN MED (Fenofibrate, Micronized (Fenofibrate) 134 MG) PO (09:00)
[2019-01-11] MEDS: ASPIRIN 81 MG TAB PO (09:15)
[2019-01-11] MEDS: AMITRIPTYLINE 50 MG TAB PO (09:16)
[2019-01-11] MEDS: LISINOPRIL 5 MG TAB PO (09:16)
[2019-01-11] MEDS: FUROSEMIDE 40 MG TAB PO (09:17)
[2019-01-11] MEDS: ASPIRIN (EC) 81 MG TAB PO (09:17)
[2019-01-11] MEDS: GABAPENTIN 300 MG CAP PO ×3 (09:17→22:00)
[2019-01-11] MEDS: CALCIUM CARBONATE 1.25 GM TAB PO (09:17)
[2019-01-11] MEDS: FENOFIBRATE 145 MG TAB PO (09:17)
[2019-01-11] MEDS: ENOXAPARIN 40 MG/0.4 ML SYG SC (09:28)
[2019-01-11] MEDS: ALENDRONATE 70 MG TAB PO (09:50)
[2019-01-11 10:36] LABS: CREATINE KINASE 33 IU/L (23-200)
[2019-01-11 10:47] LABS: CK INDEX 3.1; CK-MB 1.01 ng/ml (0.0-2.4); TROPONIN-I 0.017 ng/ml (0.000-0.120)
[2019-01-11] MEDS: DIGOXIN 0.125 MG TAB PO (13:32)
[2019-01-11] MEDS: ATORVASTATIN 40 MG TAB PO (21:59)
[2019-01-11] MEDS: FAMOTIDINE 20 MG TAB PO (22:01)
[2019-01-11] MEDS: INSULIN GLARGINE [LANTus] (100 UNITS/ML) SYG SC (22:08)
[2019-01-12] MEDS: INSULIN LISPRO PROT/LISP (75/25) 3ML KWIKPEN SC ×2 (01:15→21:44)
[2019-01-12] MEDS: ACCU-CHEK XX (02:00)
[2019-01-12] MEDS: INSULIN ASPART [NOVOLOG] 3 ML PEN SC ×4 (08:02→21:57)
[2019-01-12] MEDS: ASPIRIN (EC) 81 MG TAB PO (09:00)
[2019-01-12 09:20] LABS: B-TYPE NATRIURETIC PEPTIDE 657 PG/ML (0-125)
[2019-01-12] MEDS: ASPIRIN 81 MG TAB PO (09:51)
[2019-01-12] MEDS: CALCIUM CARBONATE 1.25 GM TAB PO (09:51)
[2019-01-12] MEDS: ENOXAPARIN 40 MG/0.4 ML SYG SC (09:53)
[2019-01-12] MEDS: GABAPENTIN 300 MG CAP PO ×2 (09:54→12:12)
[2019-01-12] MEDS: FAMOTIDINE 20 MG TAB PO ×2 (09:54→21:41)
[2019-01-12] MEDS: FENOFIBRATE 145 MG TAB PO (09:54)
[2019-01-12] MEDS: AMITRIPTYLINE 50 MG TAB PO (09:54)
[2019-01-12] MEDS: FUROSEMIDE 40 MG TAB PO (09:55)
[2019-01-12] MEDS: LISINOPRIL 5 MG TAB PO (09:55)
[2019-01-12] MEDS: DIGOXIN 0.125 MG TAB PO (12:12)
[2019-01-12] MEDS: SOD CHLORIDE 0.9% 500 ML IV (17:55)
[2019-01-12] MEDS: ATORVASTATIN 40 MG TAB PO (21:41)
[2019-01-12] MEDS: INSULIN GLARGINE [LANTus] (100 UNITS/ML) SYG SC (21:49)
[2019-01-13] MEDS: ACCU-CHEK XX (02:00)
[2019-01-13] MEDS: INSULIN ASPART [NOVOLOG] 3 ML PEN SC ×2 (07:51→11:51)
[2019-01-13] MEDS: ASPIRIN (EC) 81 MG TAB PO (08:21)
[2019-01-13] MEDS: CALCIUM CARBONATE 1.25 GM TAB PO (08:23)
[2019-01-13] MEDS: LISINOPRIL 5 MG TAB PO (08:23)
[2019-01-13] MEDS: FAMOTIDINE 20 MG TAB PO (08:23)
[2019-01-13] MEDS: FENOFIBRATE 145 MG TAB PO (08:23)
[2019-01-13] MEDS: FUROSEMIDE 40 MG TAB PO (08:24)
[2019-01-13] MEDS: ASPIRIN 81 MG TAB PO (09:00)
[2019-01-13] MEDS: DIGOXIN 0.125 MG TAB PO (12:40)
== END 2019-01-13 14:05 | disposition home or self-care (01) | DRG 291 ==
LOC: 6WM 22:52 → E/R 21:10
DX: I50.20 Unspecified systolic (congestive) heart failure (principal); G92 Toxic encephalopathy; I42.9 Cardiomyopathy, unspecified; I11.0 Hypertensive heart disease with heart failure; R07.9 Chest pain, unspecified; Z72.0 Tobacco use; E11.9 Type 2 diabetes mellitus without complications; Z85.3 Personal history of malignant neoplasm of breast; R47.81 Slurred speech; M81.0 Age-related osteoporosis without current pathological fracture; T42.6X5A Adverse effect of other antiepileptic and sedative-hypnotic drugs, initial encounter
CPT/HCPCS: 36415; 36600; 70450; 71045; 71275; 80048; 80053; 80061; 82550; 82553; 82803; 82962; 83036; 83735; 83880; 84443; 84484; 85025; 93005; 93306; 97161; 99285-25; G0378